=== PATIENT | male | born 1940 | race Caucasian/White ===

== ENCOUNTER 2017-02-14 13:04 | Emergency (ER) | payer OTHER, MEDICARE ==
--- NOTE | 2017-02-14 13:08 | EDPHY ---
H & P Time Seen by Provider: 02/14/17 13:07 HPI/ROS: CHIEF COMPLAINT: Seizure HISTORY OF PRESENT ILLNESS: The patient was brought in by EMS after collapsing at yoga class and having a seizure. Apparently he went through class and then they are doing a group yelling exercise in the hallway when he was noted to collapse and have 2 minutes tonic-clonic seizure. Was postictal on EMS arrival. Now has no complaints except for his chronic left hip pain. Specifically denies headache or visual symptoms or neck or back pain. REVIEW OF SYSTEMS: Eye: no change in vision ENT: no sore throat Cardiac: no chest pain or syncope Pulmonary: no cough or SOB Abdomen: no vomiting, diarrhea, abdominal pain Musculoskeletal: no back pain or neck pain, chronic left hip pain which is unchanged Skin: no rash Neuro: no headache Constitutional: no fever : no urinary symptoms A comprehensive 10 point review of systems is otherwise negative aside from elements mentioned in the history of present illness. PAST MEDICAL HISTORY: Chronic left hip pain, bilateral hip replacements. Seizures seen in emergency department 11/04/[address] only abnormality was possible lytic lesion in the body of C2. Social history: Denies daily alcohol. No drugs. General Appearance: Alert and conversant, cooperative. Eyes: No scleral icterus. ENT, Mouth: Right-sided tongue abrasion. Respiratory: Normal respiratory effort, breath sounds equal, lungs are clear to auscultation. Cardiovascular: Regular rate and rhythm. Gastrointestinal: Abdomen is soft and non tender. Neurological: Alert and oriented x3. Normally conversant. Face symmetric, normal movement and sensation in all extremities. Not tremulous. Skin: Skin abrasion on the dorsum of both hands. Musculoskeletal: 1+ bilateral peripheral edema which the patient says is chronic. No spinal tenderness. No hand or wrist tenderness. Psychiatric: Not agitated. Emergency Department course/MDM: EKG, CBC and chemistry, noncontrast head CT. 1320: Interviewed the , she relates that about 5 times in the past year and a half he has had staring spells and will come back awake with a pinch in his face. He has some left hip pain which is a little bit worse than usual. She did not recall any medical follow-up after his emergency visit noted above. Warned no driving until cleared by follow-up physician. Consultation with Neurology; Oscar at 1352. Start on Keppra 250 po bid, no loading dose in ED. 1355: Keppra discussed and consented. Normal mental status now. Smoking Status: Never smoked Constitutional: Initial Vital Signs Temperature (C) 36.8 C 02/14/17 13:13 Heart Rate 84 02/14/17 13:13 Respiratory Rate 18 02/14/17 13:13 Blood Pressure 160/104 H 02/14/17 13:13 O2 Sat (%) 91 L 02/14/17 13:13 O2 Delivery Mode Room Air Allergies/Adverse Reactions: No Known Allergies Allergy (Verified 02/14/17 13:16) Home Medications: Medication Instructions Recorded levETIRAcetam [Keppra 250 mg (*)] 250 mg PO BID #30 tab 02/14/17 Medical Decision Making - Diagnostics EKG Interpretation: 12-lead EKG interpreted by me; official reading is in trace master. My interpretation is sinus rhythm with left anterior fascicular block and long QT interval. Unchanged from previous dated 11/04/2015 Imaging: X-ray lift have personally reviewed shows no fracture or dislocation. There is a slight linear density in the inferior pubic ramus but was present also on previous pelvic x-ray. 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 Personally reviewed and interpreted by me. Differential Diagnosis: Differential diagnosis considered for a seizure including but not limited to electrolyte abnormality, alcohol withdrawal, medication noncompliance, head injury, and breakthrough seizure. Consult/Admit Bed Type: [facility] neurology 1351 - Data Points Laboratory Results: Laboratory Results 02/14/17 13:10 02/14/17 13:10 02/14/17 02/14/17 13:10 13:10 WBC 10.49 10^3/uL H 10^3/uL (3.80-9.50) RBC 4.84 10^6/uL 10^6/uL (4.40-6.38) Hgb 15.4 g/dL g/dL (13.7-17.5) Hct 44.5 % % (40.0-51.0) MCV 91.9 fL fL (81.5-99.8) MCH 31.8 pg pg (27.9-34.1) MCHC 34.6 g/dL g/dL (32.4-36.7) RDW 14.0 % % (11.5-15.2) Plt Count 165 10^3/uL 10^3/uL (150-400) MPV 11.0 fL fL (8.7-11.7) Neut % (Auto) 75.6 % H % (39.3-74.2) Lymph % (Auto) 13.3 % L % (15.0-45.0) [place] % (Auto) 6.6 % % (4.5-13.0) Eos % (Auto) 2.9 % % (0.6-7.6) Baso % (Auto) 0.7 % % (0.3-1.7) Nucleat RBC Rel Count 0.0 % % (0.0-0.2) Absolute Neuts (auto) 7.95 10^3/uL H 10^3/uL (1.70-6.50) Absolute Lymphs (auto) 1.39 10^3/uL 10^3/uL (1.00-3.00) Absolute Monos (auto) 0.69 10^3/uL 10^3/uL (0.30-0.80) Absolute Eos (auto) 0.30 10^3/uL 10^3/uL (0.03-0.40) Absolute Basos (auto) 0.07 10^3/uL 10^3/uL (0.02-0.10) Absolute Nucleated RBC 0.00 10^3/uL 10^3/uL (0-0.01) Immature Gran % 0.9 % % (0.0-1.1) Immature Gran # 0.09 10^3/uL 10^3/uL (0.00-0.10) Sodium 141 mEq/L mEq/L (134-144) Potassium 3.9 mEq/L mEq/L (3.5-5.2) Chloride 107 mEq/L mEq/L (97-110) Carbon Dioxide 20 mEq/l L mEq/l (22-31) Anion Gap 14 mEq/L mEq/L (8-16) BUN 21 mg/dL mg/dL (7-23) Creatinine 1.0 mg/dL mg/dL (0.7-1.3) Estimated GFR > 60 Glucose 99 mg/dL mg/dL (70-100) Calcium 9.4 mg/dL mg/dL (8.5-10.4) Medications Given: Discontinued Medications Levetiracetam (Keppra) 250 mg PO EDNOW ONE Stop: 02/14/17 13:54 Last Admin: 02/14/17 14:15 Dose: 250 mg Departure - Departure Disposition: Home, Routine, Self-Care Clinical Impression: Seizure disorder Condition: Good Instructions: Epilepsy (ED) Additional Instructions: No driving until approved by follow-up physician. Referrals: Dong Puente MD [Medical Doctor] - As per Instructions Evelio Moore MD [Medical Doctor] - 5-7 days, call for appt. (see neurology in followup. No driving until OK by Dr. Moore.) Prescriptions: levETIRAcetam [Keppra 250 mg (*)] 250 mg PO BID #30 tab
--- NOTE | 2017-02-14 13:18 | CPEKG ---
Heart Rate: 84 RR Interval: 714 P-R Interval: 160 QRSD Interval: 100 QT Interval: 424 QTC Interval: 502 P [place]: -14 QRS [place]: -64 T Wave [place]: 68 EKG Severity - ABNORMAL ECG - EKG Impression: SINUS RHYTHM EKG Impression: LEFT ANTERIOR FASCICULAR BLOCK EKG Impression: CONSIDER ANTEROSEPTAL INFARCT EKG Impression: PROLONGED QT INTERVAL Electronically Signed By: Jalil Phelan 14-Feb-2017 13:22:17
[2017-02-14 13:23] LABS: % IMMATURE GRANULYOCYTES 0.9 % (0.0-1.1); ABSOLUTE IMMATURE GRANULOCYTES 0.09 10^3/uL (0.00-0.10); ADD DIFF? NO; ADD MORPH? NO; ADD SCAN? NO; ATYPICAL LYMPHOCYTE FLAG 0 (0-99); FRAGMENT RBC FLAG 0 (0-99); HEMATOCRIT 44.5 % (40.0-51.0); HEMOGLOBIN 15.4 g/dL (13.7-17.5); LEFT SHIFT FLG 0 (0-99); LIPEMIA HEMOLYSIS FLAG 90 (0-99); MEAN CELL HEMOGLOBIN 31.8 pg (27.9-34.1); MEAN CELL HEMOGLOBIN CONCENTR. 34.6 g/dL (32.4-36.7); MEAN CELL VOLUME 91.9 fL (81.5-99.8); PLATELET CLUMPS FLAG 0 (0-99); PLATELET COUNT 165 10^3/uL (150-400); RED BLOOD CELL COUNT 4.84 10^6/uL (4.40-6.38)
[2017-02-14] MEDS ORDERED: levETIRAcetam 500 MG TAB PO ONE (13:53)
[2017-02-14 14:06] LABS: ANION GAP 14 mEq/L (8-16); CALCIUM 9.4 mg/dL (8.5-10.4); CARBON DIOXIDE 20 mEq/l (22-31); CHLORIDE 107 mEq/L (97-110); GLOMERULAR FILTRATION RATE > 60; GLUCOSE 99 mg/dL (70-100); POTASSIUM 3.9 mEq/L (3.5-5.2); SODIUM 141 mEq/L (134-144)
[2017-02-14 14:24] VITALS: BP 138/101; PULSE 71; RESP 16; TEMP 98.4; O2SAT 93
== END 2017-02-14 14:24 | disposition home or self-care (01) ==
LOC: EDUNIT#
DX: G40.909 Epilepsy, unspecified, not intractable, without status epilepticus (principal)

== ENCOUNTER 2017-04-28 16:13 | Emergency (ER) | payer OTHER, MEDICARE ==
[2017-04-28 16:26] VITALS: RESP 16; TEMP 98.4; O2SAT 94
[2017-04-28] MEDS ORDERED: NS 1,000 ML IV ONE (16:27)
--- NOTE | 2017-04-28 16:29 | EDPHY ---
H & P Stated Complaint: SZ W/ SZ HISTORY, POSTICTAL PERIOD LONGER THAN USUAL Source: Patient, Family, EMS Exam Limitations: No limitations - Personal History Current Tetanus Diphtheria and Acellular Pertussis (TDAP): Yes Tetanus Vaccine Date: within 10 years - Medical/Surgical History Hx Asthma: No Hx Chronic Respiratory Disease: No Hx Diabetes: No Hx Cardiac Disease: No Hx Renal Disease: No Hx Cirrhosis: No Hx Alcoholism: No Hx HIV/AIDS: No Hx Splenectomy or Spleen Trauma: No Other PMH: bilateral hip replacements, sz (2014 and 2016) - Social History Smoking Status: Never smoked HPI/ROS: CHIEF COMPLAINT: Seizure HISTORY OF PRESENT ILLNESS: Patient arrives by EMS with complaint of seizure. Patient's significant other reports that they were at a friend's house when he "had one of his seizures. he stares off into the distance, he twitches and won' t respond." She tried pinching his finger and trying to give him some CBD well , neither of which helped. She reports that this activity lasted for several minutes. He was then confused and disoriented. EMS was called as he remained postictal for several minutes. Time of arrival EMS does confirm that he appeared postictal them. He had no preceding chest pain, dizziness, headache. No trauma. He does have a known seizure disorder. His most recent seizure was 4 weeks ago. At that time he started taking CBD orals. He was doing well with those and had recently started to decrease his daily dose at the recommendation of his physician at [facility]. He suspects that this is the problem. He has been seen by neurologist in the past but declined to take the prescription medication as he did not like how it makes him feel. He does not recall what it was. No trauma or head injury as he was sitting in a chair and did not fall. No other associated complaints or modifying factors. REVIEW OF SYSTEMS: Ten systems reviewed and are negative unless otherwise noted in the HPI PERTINENT MEDICAL HISTORY: Seizure disorder EXAMINATION General Appearance: Alert, no distress Head: normocephalic, atraumatic. No depression. No hematoma. No Melgar sign. No raccoon eyes. Eyes: Pupils equal and round, no conjunctival pallor or injection ENT, Mouth: Mucous membranes moist midline uvula. Airway is widely patent. Neck: Normal inspection, supple, non-tender. Trachea midline Respiratory: Lungs are clear to auscultation. No wheezing, rhonchi or crackles Cardiovascular: Regular rate and rhythm. No murmur. Gastrointestinal: Abdomen is soft and nontender Back: non-tender, no bony abnormalities Neurological: GCS 15. Cranial nerves 2-12 grossly intact. A&O, nonfocal, normal gait. Strength symmetric in all 4 limbs. No pronator drift. No dysmetria. Patellar reflexes are symmetric. Skin: Warm and dry, no rash. No petechiae Extremities: Nontender, no pedal edema Psychiatric: Mood and affect normal DIFFERENTIAL DIAGNOSES: Including but not limited to seizure, status epilepticus, dehydration, seizure disorder, nonepileptic seizure, syncope MDM: 4:29 p.m. Seizure in a patient with known seizure disorder. No head injury. He has now awake and alert after the postictal period. He has no complaints at this time. Laboratory studies are pending to verify electrolyte status and hydration status. He is resting comfortably, ambulating well with a steady gait, and he is in no acute distress 5:50 p.m. Laboratory studies suggest seizure. This is recurrent seizure without status epilepticus. He is awake and alert. He is conversing appropriately. He has had no seizure-like activity here in the emergency department. I did offer Neurology referral but he has declined. He would like to follow up with his primary care physician to discuss altering his existing CBD medication. I recommend that he follows up with both a primary care physician and Neurology to discuss anti seizure medications. He will consider this. He is discharged home stable condition. SUPERVISION: Case discussed with Dr. Phelan ([facility]) Constitutional: Initial Vital Signs Temperature (C) 98.4 F 04/28/17 16:13 Heart Rate 89 04/28/17 16:13 Respiratory Rate 16 04/28/17 16:13 Blood Pressure 159/95 H 04/28/17 16:13 O2 Sat (%) 90 L 04/28/17 16:13 O2 Delivery Mode Room Air O2 (L/minute) 2 Allergies/Adverse Reactions: No Known Allergies Allergy (Verified 02/14/17 13:16) Home Medications: Medication Instructions Recorded Cbd Oil 04/28/17 Medical Decision Making - Diagnostics EKG Interpretation: 12-lead EKG interpreted by me; official reading is in trace master. My interpretation is sinus rhythm with left anterior fascicular block. No significant change from previous EKG reviewed in [facility] at 02/14/2017 (aJlil Phelan) - Data Points Laboratory Results: Laboratory Results 04/28/17 16:15 04/28/17 16:15 04/28/17 04/28/17 04/28/17 16:30 16:15 16:15 WBC 9.52 10^3/uL H 10^3/uL (3.80-9.50) RBC 5.12 10^6/uL 10^6/uL (4.40-6.38) Hgb 15.9 g/dL g/dL (13.7-17.5) Hct 48.3 % % (40.0-51.0) MCV 94.3 fL fL (81.5-99.8) MCH 31.1 pg pg (27.9-34.1) MCHC 32.9 g/dL g/dL (32.4-36.7) RDW 13.7 % % (11.5-15.2) Plt Count 155 10^3/uL 10^3/uL (150-400) MPV 11.3 fL fL (8.7-11.7) Neut % (Auto) 66.1 % % (39.3-74.2) Lymph % (Auto) 20.6 % % (15.0-45.0) [place] % (Auto) 7.1 % % (4.5-13.0) Eos % (Auto) 3.9 % % (0.6-7.6) Baso % (Auto) 0.7 % % (0.3-1.7) Nucleat RBC Rel Count 0.0 % % (0.0-0.2) Absolute Neuts (auto) 6.29 10^3/uL 10^3/uL (1.70-6.50) Absolute Lymphs (auto) 1.96 10^3/uL 10^3/uL (1.00-3.00) Absolute Monos (auto) 0.68 10^3/uL 10^3/uL (0.30-0.80) Absolute Eos (auto) 0.37 10^3/uL 10^3/uL (0.03-0.40) Absolute Basos (auto) 0.07 10^3/uL 10^3/uL (0.02-0.10) Absolute Nucleated RBC 0.00 10^3/uL 10^3/uL (0-0.01) Immature Gran % 1.6 % H % (0.0-1.1) Immature Gran # 0.15 10^3/uL H 10^3/uL (0.00-0.10) Sodium 144 mEq/L mEq/L (134-144) Potassium 3.7 mEq/L mEq/L (3.5-5.2) Chloride 106 mEq/L mEq/L (97-110) Carbon Dioxide 17 mEq/l L mEq/l (22-31) Anion Gap 21 mEq/L H mEq/L (8-16) BUN 22 mg/dL mg/dL (7-23) Creatinine 1.1 mg/dL mg/dL (0.7-1.3) Estimated GFR > 60 Glucose 102 mg/dL H mg/dL (70-100) Calcium 9.4 mg/dL mg/dL (8.5-10.4) Creatine Kinase 122 IU/L IU/L (0-224) Prolactin 40.0 ng/mL H ng/mL (3.7-17.9) Urine Color YELLOW Urine Appearance CLEAR Urine pH 6.0 (5.0-7.5) Ur Specific [place] 1.016 (1.002-1.030) Urine Protein NEGATIVE (NEGATIVE) Urine Ketones TRACE H (NEGATIVE) Urine Blood NEGATIVE (NEGATIVE) Urine Nitrate NEGATIVE (NEGATIVE) Urine Bilirubin NEGATIVE (NEGATIVE) Urine Urobilinogen NEGATIVE EU EU (0.2-1.0) Ur Leukocyte Esterase NEGATIVE (NEGATIVE) Urine RBC 3-5 /hpf H /hpf (0-3) Urine WBC 1-3 /hpf /hpf (0-3) Ur Epithelial Cells NONE SEEN /lpf /lpf (NONE-1+) Urine Glucose NEGATIVE (NEGATIVE) Medications Given: Discontinued Medications Sodium Chloride (Ns) 1,000 mls @ 0 mls/hr IV ONCE ONE; Wide Open PRN Reason: Protocol Stop: 04/28/17 16:28 Last Admin: 04/28/17 16:38 Dose: 1,000 mls Departure - Departure Disposition: Home, Routine, Self-Care Clinical Impression: Seizure Condition: Good Instructions: Recurrent Seizures in Adults (ED) Additional Instructions: 1. Follow up with primary care physician 2. Follow up with Neurology for further care 3. Return here for any return of seizure-like activity Referrals: Patient,NotPresent [Unknown] - As per Instructions Evelio Moore MD [Medical Doctor] - As per Instructions Kemal Tate MD [Medical Doctor] - As per Instructions
--- NOTE | 2017-04-28 16:45 | CPEKG ---
Heart Rate: 76 RR Interval: 789 P-R Interval: 172 QRSD Interval: 102 QT Interval: 436 QTC Interval: 491 P [place]: -12 QRS [place]: -57 T Wave [place]: 51 EKG Severity - ABNORMAL ECG - EKG Impression: SINUS RHYTHM EKG Impression: LEFT ANTERIOR FASCICULAR BLOCK EKG Impression: ANTERIOR INFARCT, AGE INDETERMINATE EKG Impression: BORDERLINE PROLONGED QT INTERVAL Electronically Signed By: Jalil Phelan 28-Apr-2017 16:48:14
[2017-04-28 16:51] LABS: % IMMATURE GRANULYOCYTES 1.6 % (0.0-1.1); ABSOLUTE IMMATURE GRANULOCYTES 0.15 10^3/uL (0.00-0.10); ADD DIFF? NO; ADD MORPH? NO; ADD SCAN? NO; ATYPICAL LYMPHOCYTE FLAG 10 (0-99); FRAGMENT RBC FLAG 0 (0-99); HEMATOCRIT 48.3 % (40.0-51.0); HEMOGLOBIN 15.9 g/dL (13.7-17.5); LEFT SHIFT FLG 10 (0-99); LIPEMIA HEMOLYSIS FLAG 80 (0-99); MEAN CELL HEMOGLOBIN 31.1 pg (27.9-34.1); MEAN CELL HEMOGLOBIN CONCENTR. 32.9 g/dL (32.4-36.7); MEAN CELL VOLUME 94.3 fL (81.5-99.8); MEAN PLATELET VOLUME 11.3 fL (8.7-11.7); PLATELET CLUMPS FLAG 0 (0-99); PLATELET COUNT 155 10^3/uL (150-400); RED BLOOD CELL COUNT 5.12 10^6/uL (4.40-6.38); RED CELL DISTRIBUTION WIDTH 13.7 % (11.5-15.2)
[2017-04-28 16:56] LABS: COLOR YELLOW; LEUKOCYTE ESTERASE,URINE NEGATIVE (NEGATIVE); NITRITE,URINE NEGATIVE (NEGATIVE)
[2017-04-28 17:05] LABS: ANION GAP 21 mEq/L (8-16); CALCIUM 9.4 mg/dL (8.5-10.4); CARBON DIOXIDE 17 mEq/l (22-31); CHLORIDE 106 mEq/L (97-110); CREATININE 1.1 mg/dL (0.7-1.3); GLOMERULAR FILTRATION RATE > 60; GLUCOSE 102 mg/dL (70-100); POTASSIUM 3.7 mEq/L (3.5-5.2); SODIUM 144 mEq/L (134-144)
[2017-04-28 18:37] VITALS: BP 195/101; PULSE 78
== END 2017-04-28 18:37 | disposition home or self-care (01) ==
LOC: EDUNIT#
DX: G40.909 Epilepsy, unspecified, not intractable, without status epilepticus (principal)

== ENCOUNTER → 2017-05-13 | Outpatient (CLI) | payer OTHER, MEDICARE ==
--- NOTE | 2017-05-14 10:17 | CPEEG ---
[f rep st] ELECTROENCEPHALOGRAM DATE OF STUDY: 05/13/2017 INTRODUCTION: This is a multi-channel EEG using the standard international 10- 20 system of disk electrode placement. A single EKG channel was monitored for the duration of the study. This study was undertaken for the evaluation of seizures. Pertinent medications include levetiracetam. The duration of the study is 32 minutes. DESCRIPTION OF RECORDING: In the maximum alert state, the patient achieves 9- 9.5 hertz posterior dominant rhythm of symmetric alpha, which attenuated with eye opening. Activating measures including photic stimulation and hyperventilation were performed. Photic stimulation failed to activate the tracing. Hyperventilation resulted in a very mild and very transient buildup response. Most of the tracing was marked by drowsiness as evident by slow roving eye movements, waning of the background, anterior spread of alpha, and intermittent generalized bursts of delta activity. In the drowsy state, 2 distinct sharp waves were observed with maximum intensity in the right anterior temporal region. A brief run of right temporal intermittent delta activity was also observed. No other distinct epileptogenic activity was observed. No sleep architecture observed. The EKG demonstrated normal sinus rhythm. INTERPRETATION: This is an abnormal EEG due to the presence of sharp waves centered about the right anterior temporal region, as well as a brief run of right temporal intermittent rhythmic delta activity. CLINICAL CORRELATION: This study suggests a possible epileptogenic focus in the right anterior temporal cortical region, or possibly the underlying right mesial temporal region. /[id number]/MODL MTDD
== END ==
LOC: FCPNEURO 10:58
PROVIDERS: ATTEND Psychiatry & Neurology Neurology
DX: R56.9 Unspecified convulsions (principal); R94.01 Abnormal electroencephalogram [EEG]

== ENCOUNTER → 2017-06-07 | Outpatient (CLI) | payer OTHER, MEDICARE ==
[~2017-06-07] MED LIST: GADOBUTROL 10 ML VIAL IVP ONE
== END ==
LOC: FIMAGING 08:01
PROVIDERS: ATTEND Psychiatry & Neurology Neurology
DX: R56.9 Unspecified convulsions (principal); I67.82 Cerebral ischemia; J32.0 Chronic maxillary sinusitis
CPT/HCPCS: 70553; A9585

== ENCOUNTER → 2017-07-07 | Outpatient (CLI) | payer OTHER, MEDICARE | LOC: FIMAGING 14:20 | PROVIDERS: ATTEND Student in an Organized Health Care Education/Training Program | DX: R09.89 Other specified symptoms and signs involving the circulatory and respiratory systems (principal); R56.9 Unspecified convulsions; I10 Essential (primary) hypertension ==

== ENCOUNTER → 2018-12-30 | Outpatient (CLI) | payer OTHER, MEDICARE ==
[~2018-12-30] MED LIST changes: -GADOBUTROL 10 ML VIAL IVP ONE; +IOHEXOL 350mgI/ML (OMNIPAQUE) 150 ML BTL IV ONE
== END ==
LOC: FIMAGING 14:07
PROVIDERS: ATTEND Psychiatry & Neurology Neurology
DX: R29.818 Other symptoms and signs involving the nervous system (principal); G40.109 Localization-related (focal) (partial) symptomatic epilepsy and epileptic syndromes with simple partial seizures, not intractable, without status epilepticus
CPT/HCPCS: 70450; 70496; 70498; Q9967; 82565-PO

== ENCOUNTER → 2019-04-20 | Outpatient (CLI) | payer OTHER, MEDICARE | LOC: BHFA 14:45 | PROVIDERS: ATTEND Internal Medicine Cardiovascular Disease | DX: I63.9 Cerebral infarction, unspecified (principal) ==